=== PATIENT | male | born 2000 | race Caucasian/White ===

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

== ENCOUNTER 2020-09-01 06:24 | Emergency (ER) | payer SELFPAY ==
[~2020-09-01] VITALS: Ht 167.6 cm; Wt 68.0 kg
[2020-09-01 06:24] VITALS: BP 102/73
--- NOTE | 2020-09-01 06:38 | PHYS DOC ---
Past History Past Medical History: No Pertinent History Past Surgical History: Other Smoking: Cigarettes, Less than 1pk/day Alcohol Use: Sober Drug Use: None Adult General HPI HPI Patient is a 20-year-old male presenting for acute on chronic dental issues. Has a history of poor dentition with numerous dental caries. Reports he has had infections in the past that have required antibiotics. States 3 days ago he started having feelings of dental irritation and subsequent swelling and pain. He states he has had feelings like this in early stages of infection in the past, does admit he has required incision and drainage for dental abscesses in similar location and fears waiting to get to this point. He does not have de ntal insurance and requesting resources for chronic outpatient management Review of Systems Review of Systems Fourteen body systems of review of systems have been reviewed. See HPI for pertinent positives and negative responses, other vo all other systems are negative, non-pertinent or non-contributory Allergies Allergies Allergies Coded Allergies Type Severity Reaction Last Updated Verified No Known Drug Allergies 08/27/16 No Physical Exam Physical Exam General: Appears well, non toxic, and comfortable Skin: Warm, dry. Normal for ethnicity. Head: Atraumatic. EENT: PERRLA. Moist mucous membranes. Uvula midline. No trismus. Maintaining secretions. No phonation changes. No facial swelling. No periapical abscess. Poor dentition. Numerous dental caries but there does appear to be dental carry with an acute infection tooth #30 with gingival irritation and swelling without any focal abscess Neck: Trachea midline. Normal ROM. No stridor. Respiratory: Normal WOB. No tachypnea. Cardiovascular: Normal peripheral perfusion. Musculoskeletal: Normal ROM. Neuro: Alert and oriented x 4. MAEE. Lymph: No cervical LAD. Psych: Normal affect and mood. EKG EKG [] Radiology/Procedures Radiology/Procedures [] Heart Score C/O Chest Pain: No Risk Factors: Risk Factors: DM, Current or recent (<one month) smoker, HTN, HLP, family history of CAD, obesity. Risk Scores: Risk Factors: DM, Current or recent (<one month) smoker, HTN, HLP, family history of CAD, obesity. Course & Med Decision Making Course & Med Decision Making Discussed with the patient all findings. I discussed most likely diagnosis of infected dental carry in setting of chronically poor dentition. Good oral hygiene and joint decision to start amoxicillin discussed with resources given on local area for outpatient dental care. I stressed need for close outpatient follow-up to review today's ER visit. Strict return precautions were also discussed at length with good understanding by patient. Patient voiced understanding and agreement with the plan. Patient knows to come back for repeat evaluation if concerning signs or symptoms present prior to outpatient follow- up. Hemodynamically stable, ambulatory and well-appearing at time of disposition. Dragon Disclaimer Dragon Disclaimer This electronic medical record was generated, in whole or in part, using a voice recognition dictation system. Departure Departure: Impression: Primary Impression: Infected dental caries Disposition: HOME / SELF CARE / HOMELESS Condition: STABLE Referrals: PCP,NO (PCP) Patient Instructions: Dental Caries Additional Instructions: You were seen for dental pain. There does appear to be any infection at this time, likely from her chronic dental caries. Take Ibuprofen (600-800mg) and Tylenol (500-650mg) alternating every 4-6 hours to help with inflammation and pain while you contact a dentist for further care. Please take your prescribed amoxicillin antibiotic as scheduled to completion. You should return to the ED if you develop worsening pain, fever > 101, swelling, redness, or any other new or concerning symptoms. Unfortunately, your pain is not likely to improve without seeing a dentist for further evaluation and treatment of your poor dentition and dental caries. Scripts Amoxicillin (AMOXICILLIN) 500 Mg Tablet 1 TAB PO TID for infected dental caries for 7 Days, #21 TAB Prov: VALENTE TOWNSEND DO 09/01/20 VALENTE TOWNSEND DO Sep 01, 2020 06:38
[2020-09-01] MEDS ORDERED: AMOX500T PO (06:50)
== END 2020-09-01 07:08 | disposition home or self-care (01) ==
LOC: ER 06:24
DX: K02.9 Dental caries, unspecified (principal); F17.210 Nicotine dependence, cigarettes, uncomplicated
CPT/HCPCS: 99283